=== PATIENT | male | born 1995 | race Caucasian/White ===

== ENCOUNTER 2017-12-09 02:52 | Emergency (ER) | payer OTHER, SELFPAY ==
[2017-12-09 02:52] VITALS: BP 109/70; PULSE 105; RESP 18; TEMP 36.4; O2SAT 98
--- NOTE | 2017-12-09 04:18 | ED.DCSUM_ITS ---
- ER Visit Summary Date of Service: 12/09/17 Chief Complaint: Chemical exposure History of Present Illness: The patient is a 22 M who was splashed in the left eye with methyl ethyl ketone. He was wearing eye protection but it splashed around the shield. This was a small amount of chemical. The patient rinsed his eye prior to arrival. He seems to be doing well. No other complaints. No vision changes. No pain. Patient wears corrective glasses but no contact lenses. Physical Examination: Vital signs unremarkable. Extraocular structures and skin all normal. Lids everted and normal. Pupils round, reactive, consensual. Fluorescein is not available, but there are no obvious corneal defects. Normal iris, sclera, and conjunctive. Visual acuity unremarkable. Test Results: None indicated Emergency Department Course and Treatment: Patient had a normal acuity. I was irrigated. He tolerated this. No further symptoms. No new or worsening symptoms. Patient will be discharged to follow-up with [facility]. Treatment Plan: Return to work, keep eye protected, follow-up with [facility]. Disposition: Discharged Impression: 1. Chemical exposure left eye This note was generated with [employer] software. It may contain incorrect words, spelling, and punctuation that were not noted in review of the chart prior to signing ED Disposition - Plan for ED Patient: Chief Complaint: Eye Problem Referrals: Williams Marlow [Primary Care Provider] -
--- NOTE | 2017-12-09 04:18 | ED.DEP ---
ED Disposition - Plan for ED Patient: Chief Complaint: Eye Problem Instructions: ED Chemical Conjunctivitis Referrals: JELENA BOWLES [GROUP OF PHYSICIANS] - Additional Instructions: Return if worse or if new symptoms develop.
[2017-12-09 04:30] VITALS: BP 128/74; PULSE 85; RESP 18; O2SAT 98
== END 2017-12-09 04:32 | disposition home or self-care (01) ==
PROVIDERS: Emergency Provider Emergency Medicine; Family Provider Family Medicine; PCP Family Medicine
DX: Z77.098 Contact with and (suspected) exposure to other hazardous, chiefly nonmedicinal, chemicals (principal)
CPT/HCPCS: 99284

== ENCOUNTER 2019-05-28 05:25 | Emergency (ER) | payer OTHER, SELFPAY ==
[2019-05-28 05:26] VITALS: BP 115/67; PULSE 77; RESP 16; TEMP 36.4; O2SAT 97; BMI 21.2
--- NOTE | 2019-05-28 05:51 | ED.VISSUMM ---
- ER Visit Summary Date of Service: 05/28/19 Chief Complaint: Laceration History of Present Illness: The patient is a 24 M who cut his left index finger just prior to arrival. He was at work. He is right-hand dominant. No associated complaints. Up-to-date with immunizations. Physical Examination: 1.5 cm laceration to the proximal phalanx, dorsal/radial side of the left index finger. Neurovascular intact distally. Good strength and sensation. Test Results: None indicated Emergency Department Course and Treatment: Wound was anesthetized with lidocaine. Cleaned with saline and cleanser. Explored. Closed with 4 simple interrupted sutures. They were given wound care instructions. Return to work. Keep the area clean and dry. Follow-up with [facility] in about 10 days. Return right away for signs of infection. Treatment Plan: As above Disposition: Discharge Impression: 1. Left index finger laceration 1.5 cm This note was generated with [employer] dictation software. It may contain incorrect words, spelling, and punctuation that were not noted in review of the chart prior to signing ED Disposition - Plan for ED Patient: Referrals: Williams Marlow [Primary Care Provider] -
--- NOTE | 2019-05-28 05:54 | ED.DEP ---
ED Disposition - Plan for ED Patient: Instructions: LACERATION, Hand Referrals: [facility] [GROUP OF PHYSICIANS] -
[2019-05-28 06:29] VITALS: BP 116/62; PULSE 77; RESP 18; O2SAT 98
== END 2019-05-28 06:30 | disposition home or self-care (01) ==
LOC: ED 06:18
PROVIDERS: Emergency Provider Emergency Medicine; Family Provider Family Medicine; PCP Family Medicine
DX: S61.211A Laceration without foreign body of left index finger without damage to nail, initial encounter (principal); X58.XXXA Exposure to other specified factors, initial encounter; Y93.9 Activity, unspecified; Y92.9 Unspecified place or not applicable
CPT/HCPCS: 12001; 99283